=== PATIENT | male | born 1950 | race Caucasian/White ===

== ENCOUNTER → 2017-06-21 | Outpatient (CLI) | payer OTHER ==
[~2017-06-21] MED LIST: ACETAMINOPHEN P1 TA5 PO; ADVIL200 M2 PO; ASPIRIN EC81 M1 PO; COUMADIN2.5 MG PO; COUMADIN5 MG PO; CRESTOR PO; FAMOTIDINE PO; LEVAQUIN PO; LOPRESSOR PO; METRONIDAZOLE PO; PEPCID AC20 M2 PO; PRINIVIL10 MG PO; VICODIN 5/500 T1 TAB PO; ZOCOR PO; [UNRECOGNIZED DRUG - OTHER] PO
--- NOTE | ~2017-06-21 | CT55 ---
[facility] A Service of [facility] & [facility] RADIOLOGY TEXT RESULTS PATIENT: DENA GONZALEZ [facility] 54 UNIT #: [id number] AGE: [address]: Samuel Luna MD SEX: M ORDER DR: [id number] [facility] [address] [place], [place] [address] [id number] O MR#: [id number] Acc #: [id number] NAME: DENA GONZALEZ : 1950 SEX: M STUDY DATE/TIME: 06/21/2017 15:58 UNIT: [facility] ROOM: STUDY DESCRIPTION: CT Chest W Con Attending Physician: Samuel Luna M.D. Referring Physician: Samuel Luna M.D. Ordering Physician: Samuel Luna M.D. Primary Care Physician: Samuel Luna M.D. MEDICAL IMAGING REPORT This report is preliminary unless electronic signature is present EXAM CT chest with contrast, 06/21/2017, 1558 hours. CLINICAL HISTORY 67-year-old man with nausea, vomiting and occasional diarrhea for 1 month. Swelling of the feet and ankles for 1 month. Chest discomfort for 1 month with emphysema, hypertension and syndrome of inappropriate ADH secretion. COMPARISON CT abdomen, 06/21/2017. There is no prior chest CT. TECHNIQUE Dynamic helical CT images were obtained from the thoracic inlet through the adrenal glands. Sagittal and coronal reconstructions were performed. Contrast was Isovue-370 100 mL IV. Total exam DLP for the chest, abdomen and pelvis CT is 1915 mGy-cm. This CT exam was performed with one or more of the following radiation dose reduction techniques: automatic exposure control, adjustment of mA and/or kV according to patient size, and iterative reconstruction. FINDINGS Images through the thoracic inlet demonstrate no thyroid mass or adenopathy. Images in the chest demonstrate a small posterior right paratracheal node in the superior mediastinum measuring 1.5 x 1.1 cm. This is indeterminate (image 12). There is atherosclerotic change of the aorta which is diffusely ectatic with a small ascending aortic aneurysm measuring 4 cm. There is no dissection. There are coronary artery calcifications. Cardiac chambers, pericardium and esophagus are normal. There is no lymphadenopathy or mass. [facility] A Service of [facility] RADIOLOGY TEXT RESULTS PATIENT: DENA GONZALEZ LOCATION: [facility] : 54 UNIT #: [id number] AGE: [address]: Samuel Luna MD SEX: M ORDER DR: Lung window images demonstrate underlying emphysematous change diffusely. There is biapical pleural and parenchymal scar. There is no suspicious mass or nodule. There is a benign calcified granuloma in the right upper lobe measuring 3 mm on image 32. Limited views through the upper abdomen are negative. There is bilateral gynecomastia. IMPRESSION 1. There is mild aneurysmal dilatation of the ascending aorta measuring 4 cm. No dissection. 2. There is no definite pathologic adenopathy. There is a small posterior right paratracheal node in the superior mediastinum on image 12 measuring 1.5 x 1.0 cm which is indeterminate. 3. There is moderate bilateral gynecomastia. 4. Emphysematous changes in the lungs with biapical scarring. There are calcified granulomata. There is no suspicious lung nodule or mass. 5. No acute bone lesions are seen. There are degenerative changes at the thoracic lumbar junction. Dictated by... Debra Chowdhury M.D. THIS IS AN ELECTRONICALLY VERIFIED REPORT Debra Chowdhury M.D. at 06/22/2017 6:57 PM FIFI/phani TD: 06/22/2017 17:00 JOB #: [id number] MEDICAL IMAGING REPORT Page 1 of 1 COPY
--- NOTE | ~2017-06-21 | CT2 ---
[facility] A Service of [facility] RADIOLOGY TEXT RESULTS PATIENT: DENA GONZALEZ [facility] UN[facility] #: [id number] AGE: [address]: Samuel Luna MD SEX: M ORDER DR: [id number] [facility] [address] [place], [place] [address] [id number] O MR#: [id number] Acc #: [id number] NAME: DENA GONZALEZ : 1950 SEX: M STUDY DATE/TIME: 06/21/2017 15:03 UNIT: [facility] ROOM: STUDY DESCRIPTION: CT Abd and Pelv W Cont Attending Physician: Samuel Luna M.D. Referring Physician: Samuel Luna M.D. Ordering Physician: Samuel Luna M.D. Primary Care Physician: Samuel Luna M.D. MEDICAL IMAGING REPORT This report is preliminary unless electronic signature is present EXAM CT abdomen and pelvis with contrast. INDICATIONS Weight loss, nausea and vomiting, syndrome of inappropriate ADH, symptoms for a month. Followup aortic aneurysm. COMPARISON 01/27/2016 TECHNIQUE Patient was given 100 mL of Isovue-370 and axial 5-mm images were obtained through the abdomen and pelvis. Oral contrast was also administered. Sagittal and coronal reconstructions were generated. This CT exam was performed with one or more of the following radiation dose reduction techniques: Automatic exposure control, adjustment of mA and/or kV according to patient size, and iterative reconstruction. FINDINGS Lung bases are clear. The liver, gallbladder, spleen, pancreas, adrenal glands and kidneys are normal. The aorta shows enlargement, but has been treated with an aortic stent graft. Maximum diameter of the [place] aorta is about 4.7 cm, which is slightly decreased from the prior study. The stent graft is patent and there is no evidence of leak. The graft extends into the common iliac regions bilaterally. The left colon shows numerous colonic diverticula and there is wall thickening throughout the sigmoid colon suggesting chronic diverticulitis. The bladder and prostate gland are normal. The bones show degenerative changes in the lumbar spine. IMPRESSION 1. There is no evidence of malignancy. 2. There is no significant change in the [place] aortic aneurysm, which STS. [facility] A Service of [facility] RADIOLOGY TEXT RESULTS PATIENT: DENA GONZALEZ LOCATION: [facility] : 54 UNIT #: [id number] AGE: [address]: Samuel Luna MD SEX: M ORDER DR: has been treated with an aortic stent graft. 3. Otherwise, the study is normal. Dictated by... Carlos Sam M.D. THIS IS AN ELECTRONICALLY VERIFIED REPORT Carlos Sam M.D. at 06/22/2017 6:04 AM MARTIN/marlon TD: 06/22/2017 03:58 JOB #: [id number] MEDICAL IMAGING REPORT Page 1 of 1 COPY
[2017-06-21 18:35] LABS: POC - GFR >60.0 mL/min (>60)
== END | disposition home or self-care (01) ==
LOC: CCAT 14:56
PROVIDERS: Internal Medicine
DX: R63.4 Abnormal weight loss (principal); R11.2 Nausea with vomiting, unspecified; E22.2 Syndrome of inappropriate secretion of antidiuretic hormone; I71.2 Thoracic aortic aneurysm, without rupture; N62 Hypertrophy of breast; J84.10 Pulmonary fibrosis, unspecified; J98.4 Other disorders of lung; M47.895 Other spondylosis, thoracolumbar region; Z95.828 Presence of other vascular implants and grafts
CPT/HCPCS: 71260; 74177; 82565; Q9967